=== PATIENT | female | born 1980 | race Caucasian/White ===

== ENCOUNTER 2017-02-26 17:55 | Inpatient (IN) | payer SELFPAY ==
[~2017-02-26] VITALS: Ht 167.6 cm; Wt 96.5 kg
[~2017-02-26 17:55] MED LIST: INDERAL40 MG PO; MOTRIN800 MG PO; PERCOCET 5/31 TABLET PO; SEROQUEL100 MG PO; ZOFRAN4 MG PO
[2017-02-26 18:50] LABS: HEMATOCRIT 44.9 % (36.0-46.0); MCH 29.8 PG (29.0-34.0); MCHC 34.7 G/DL (30.0-36.0); MCV 85.7 FL (83-99); MEAN PLAT.VOLUME 12.1 uM^3 (9.5-12.4); PLATELET COUNT 208 K/uL (156-360); RBC DIS.WIDTH-CV 12.8 % (11.8-14.6); RBC DIS.WIDTH-SD 39.7 % (39-53); RED BLOOD COUNT 5.24 M/uL (3.80-5.20); WHITE BLOOD COUNT 8.6 K/uL (4.1-10.2)
[2017-02-26 19:02] LABS: CHLORIDE 106 mEq/L (99-109); POTASSIUM 4.2 mEq/L (3.7-5.4); SODIUM 140 mEq/L (136-147)
[2017-02-26 19:04] LABS: GLUCOSE 90 mg/dL (70-99)
[2017-02-26 19:06] LABS: ANION GAP 12 MEQ/L (2-14); TOTAL BILIRUBIN 0.7 mg/dL (0.0-1.0)
[2017-02-26 19:08] LABS: ALKALINE PHOSPHATASE 78 IU/L (3-129); GFR ESTIMATE (CALCULATED) > 59 mL/min/
[2017-02-26 19:09] LABS: UREA NITROGEN (BUN) 8 mg/dL (9-23)
[2017-02-26 19:22] LABS: QUANTITATIVE HCG < 4.0 MIU/ML
[2017-02-26 20:26] LABS: LIPASE 5 U/L (1.0-51.0)
[2017-02-26] MEDS ORDERED: PROPRANOLOL HCL60 M1 PO (21:06)
[2017-02-26] MEDS ORDERED: CHANTIX1 MG PO (21:07)
[2017-02-26] MEDS ORDERED: FIORICET,ESG1 TABLET PO (21:08)
[2017-02-26] MEDS ORDERED: MELATONIN10 M5 PO (21:08)
[2017-02-26] MEDS ORDERED: METHYLPHENIDATE40 M3 PO (21:10)
[2017-02-26] MEDS ORDERED: ZANAFLEX6 MG PO (21:13)
[2017-02-26] MEDS ORDERED: PROPRANOLOL HCL60 MG PO (23:18)
[2017-02-26 23:26] LABS: ADD MIUA? YES; BILIRUBIN NEGATIVE; BLOOD MODERATE; COLOR YELLOW ((YELLOW)); GLUCOSE (STRIP) NEGATIVE; KETONES 80; LEUKOCYTES NEGATIVE; NITRITE NEGATIVE; PROTEIN (STRIP) NEGATIVE; SPECIFIC GRAVITY 1.023 (1.000-1.030); UROBILINOGEN 0.2 MG/DL (0.2-1.0)
[2017-02-26 23:30] LABS: BACTERIA RARE /HPF; EPITHELIAL CELLS RARE /HPF; MUCUS TRACE /LPF; RED BLOOD CELLS 0-5 /HPF (0-5); UCUL ADDED? NO; WHITE BLOOD CELLS 0-5 /HPF (0-5)
[2017-02-27 00:36] VITALS: BP 127/60
[2017-02-27 03:12] VITALS: BP 111/58
[2017-02-27 07:36] VITALS: BP 108/56
[2017-02-27 12:00] VITALS: BP 126/75
[2017-02-27 15:42] LABS: C DIFF TOXIN POSITIVE (NEGATIVE)
[2017-02-27 15:47] LABS: PROBE CHECK PASS
[2017-02-27 17:03] VITALS: BP 130/77
[2017-02-27 19:00] VITALS: BP 135/70
[2017-02-28 00:36] VITALS: BP 129/67
[2017-02-28 07:56] VITALS: BP 122/74
[2017-02-28 12:27] VITALS: BP 115/58
[2017-02-28 15:52] VITALS: BP 144/75
[2017-02-28 19:52] VITALS: BP 121/70
[2017-03-01] VITALS (7 sets, daily range): BP systolic 104–132; BP diastolic 55–88
[2017-03-01 05:41] LABS: EOSINOPHIL COUNT 0.2 K/uL (0-0.3); HEMATOCRIT 38.8 % (36.0-46.0); IMMATURE GRANULOCYTE (%) 0.3 % (0.0-0.7); INSTRUMENT ABS NEUTROPHIL CT 3.5 K/uL; LYMPHOCYTE COUNT 1.9 K/uL (1.0-2.8); MCHC 35.3 G/DL (30.0-36.0); MCV 85.1 FL (83-99); MEAN PLAT.VOLUME 11.5 uM^3 (9.5-12.4); MONOCYTE (%) 11.1 % (3-12); MONOCYTE COUNT 0.7 K/uL (0-0.8); NEUTROPHIL COUNT 3.5 K/uL (1.8-6.4); PLATELET COUNT 177 K/uL (156-360); RBC DIS.WIDTH-CV 12.7 % (11.8-14.6); RBC DIS.WIDTH-SD 39.7 % (39-53); RED BLOOD COUNT 4.56 M/uL (3.80-5.20); WHITE BLOOD COUNT 6.3 K/uL (4.1-10.2)
[2017-03-01 06:04] LABS: ANION GAP 8 MEQ/L (2-14); CHLORIDE 104 MEQ/L (99-109); GFR ESTIMATE (CALCULATED) > 59 mL/min/; GLUCOSE 91 mg/dL (70-99); SAMPLE HEMOLYSIS CHECK 0; SAMPLE ICTERIC CHECK 0; SAMPLE LIPEMIA CHECK 0; SODIUM 141 MEQ/L (136-147); UREA NITROGEN (BUN) 5 mg/dL (9-23)
[2017-03-01 06:12] LABS: POTASSIUM 3.3 MEQ/L (3.7-5.4)
[2017-03-02 04:14] VITALS: BP 94/53
[2017-03-02 05:16] LABS: CHLORIDE 105 mEq/L (99-109); SODIUM 141 mEq/L (136-147)
[2017-03-02 05:18] LABS: GLUCOSE 89 mg/dL (70-99)
[2017-03-02 05:19] LABS: ANION GAP 8 MEQ/L (2-14)
[2017-03-02 05:22] LABS: GFR ESTIMATE (CALCULATED) > 59 mL/min/
[2017-03-02 05:23] LABS: UREA NITROGEN (BUN) 7 mg/dL (9-23)
[2017-03-02 05:29] LABS: POTASSIUM 4.2 mEq/L (3.7-5.4)
[2017-03-02] MEDS ORDERED: DICYCLOMINE HCL10 MG PO (09:30)
[2017-03-02] MEDS ORDERED: VANCOCIN HCL125 MG PO (09:30)
[2017-03-02] MEDS ORDERED: FLORASTOR250 MG PO (09:30)
[2017-03-02 09:34] VITALS: BP 127/71
== END 2017-03-02 10:40 | disposition home or self-care (01) | DRG 372 ==
LOC: EME 17:55 → EDOF 23:17 → 5WEST 23:17 → EDOF 23:17 → 5WEST 02-27 00:27
PROVIDERS: Emergency Medicine; Hospitalist
PROC: 8E0ZXY6 Isolation (ICD-10-PCS; principal; 2017-02-27)
DX: A04.7 Enterocolitis due to Clostridium difficile (principal); J98.11 Atelectasis; G43.909 Migraine, unspecified, not intractable, without status migrainosus; M54.5 Low back pain; E66.9 Obesity, unspecified; M51.36 Other intervertebral disc degeneration, lumbar region; F17.210 Nicotine dependence, cigarettes, uncomplicated; Z68.34 Body mass index [BMI] 34.0-34.9, adult; Z86.010 Personal history of colon polyps; Z88.5 Allergy status to narcotic agent; Z82.49 Family history of ischemic heart disease and other diseases of the circulatory system; Z83.71 Family history of colonic polyps; Z09 Encounter for follow-up examination after completed treatment for conditions other than malignant neoplasm
CPT/HCPCS: 74176; 80048; 80053; 80069; 81003; 83690; 84702; 85025; 85027; 87177; 87493; 87506; 99281; 99285; C9113; G0378; J1200; J1630; J1885; J2405; J2765; J3010; J7030; J7042; S0028; S0030